=== PATIENT | female | born 1940 | race Caucasian/White ===

== ENCOUNTER → 2018-01-29 | Outpatient (CLI) | payer MEDICARE, OTHER ==
[~2018-01-29] MED LIST: ALBU8.5H5 INH; AZEL23SP NAS; CELE200C PO; CELE400C PO; DICY20TA29 PO; DICY20TA3 PO; ESTR0.45 PO; FLOVENT HFA INH; GABA600T2 PO; LEVO137T3 PO; MONT10TA9 PO; OXYC20TA42 PO; RABE20TA18 PO
== END | disposition home or self-care (01) ==
LOC: STAR 11:17
PROVIDERS: ATTEND Otolaryngology
DX: Z01.818 Encounter for other preprocedural examination (principal); J32.2 Chronic ethmoidal sinusitis; J32.0 Chronic maxillary sinusitis
CPT/HCPCS: 93005

== ENCOUNTER 2018-02-04 08:15 | Day surgery (SDC) | payer MEDICARE, OTHER ==
[~2018-02-04] VITALS: Ht 157.5 cm; Wt 92.9 kg
[~2018-02-04 08:15] MED LIST changes: +BACITRACIN OINT 500U/GM, 15 GM ONE; +BUDE10.2 INH; +DICL112S2 TP; +EPINEPHRINE 1 MG/ML, 1ML ONE; +EPINEPHRINE TOPICAL SOLN 1 MG/ML, 30ML ONE; +FLUORESCEIN OPHTHALMIC 1 MG STRIP ONE; +LACT1CAP35 PO; +LIDOCAINE 1%, 20ML ONE; +MULT-230 PO; +OXYMETAZOLINE NASAL SPRAY 0.05%, 15ML ONE
[2018-02-04 08:46] VITALS: BP 141/97
[2018-02-04] MEDS ORDERED: LACTATED RINGERS 1,000 ML IV SCH (08:49)
[2018-02-04] MEDS ORDERED: LIDOCAINE-MPF 1%, 2ML INFIL ONE (09:00)
[2018-02-04] MEDS ORDERED: PROPOFOL 50 ML ONE (09:15)
[2018-02-04] MEDS ORDERED: FENTANYL PF 250 MCG/5ML ONE (09:16)
[2018-02-04] MEDS ORDERED: CIPROFLOXACIN/PMX 400MG/200ML 200 ML ONE (11:02)
[2018-02-04] MEDS ORDERED: FENTANYL PF 100 MCG/2ML IV PRN (12:30)
[2018-02-04] MEDS ORDERED: ACETAMINOPHEN 325 MG TABLET PO PRN (12:30)
[2018-02-04] MEDS ORDERED: ALBUTEROL SULFATE 2.5 MG/3 ML NPPB PRN (12:30)
[2018-02-04] MEDS ORDERED: OXYcodone 5 MG/5 ML ORAL.SOL UDC PO PRN (12:30)
[2018-02-04] MEDS ORDERED: PROMETHAZINE 25 MG/ML, 1ML IV PRN (12:30)
[2018-02-04] MEDS ORDERED: CEFAZOLIN 1,000 MG ONE (15:44)
[2018-02-04] MEDS ORDERED: SUCCINYLCHOLINE 20 MG/ML, 10ML ONE (15:44)
[2018-02-04] MEDS ORDERED: DEXAMETHASONE 4 MG/ML, 1ML ONE (15:44)
[2018-02-04] MEDS ORDERED: EPHEDRINE 50 MG/ML, 1ML ONE (15:44)
[2018-02-04] MEDS ORDERED: ONDANSETRON 2MG/ML, 2ML ONE (15:44)
[2018-02-04] MEDS ORDERED: PROPOFOL 10 MG/ML, 20ML ONE (15:44)
[2018-02-04] MEDS ORDERED: ROCURONIUM 10 MG/ML,10ML ONE (15:44)
== END 2018-02-04 14:50 ==
LOC: OUT 08:15
PROVIDERS: ATTEND Otolaryngology
DX: J32.9 Chronic sinusitis, unspecified (principal); G43.909 Migraine, unspecified, not intractable, without status migrainosus; J45.909 Unspecified asthma, uncomplicated; K21.9 Gastro-esophageal reflux disease without esophagitis; E03.9 Hypothyroidism, unspecified; E66.01 Morbid (severe) obesity due to excess calories; Z68.37 Body mass index [BMI] 37.0-37.9, adult; Z88.5 Allergy status to narcotic agent; Z88.1 Allergy status to other antibiotic agents; Z88.8 Allergy status to other drugs, medicaments and biological substances
CPT/HCPCS: 31253; 31267; 61782; 87070; 87075; 87077; 87102; 87186; 87205; 88304; 88305; 88311; J0171; J0330; J0690; J0744; J1100; J2405; J2704; J3010; J3490; J7120